=== PATIENT | female | born 1945 | race African-American/Black ===

== ENCOUNTER 2020-07-10 17:00 | Inpatient (IN) ==
[2020-07-10 18:19] LABS: Basophils % 0.2 % (0.0-0.8); Eosinophils # 0.1 10*3/uL (0.0-0.87); Hematocrit 40.1 VOL% (35.7-47.0); Hemoglobin 12.6 GM/DL (12.0-16.0); Immature Granulocytes % 0.4 %; Immature Granulocytes Absolute 0.02 #; Lymphocytes # 1.9 10*3/uL (1.4-4.0); Lymphocytes % 39.7 % (21.3-54.2); Mean Corpuscular HGB Conc 31.4 GM/DL (32-36); Mean Corpuscular Volume 85.9 FL (87-102); Mean Platelet Volume 10.4 FL (9.6-12.0); Neutrophils % 49.7 % (38.7-73.9); Platelet Count 229 T/CUMM (130-400); Red Blood Count 4.67 MC/CUMM (3.8-5.5); Red Cell Distribution Width 14.6 % (9.3-17.3); White Blood Count 4.8 T/CUMM (4-12)
[2020-07-10 18:31] LABS: Alanine Aminotransferase 17 U/L (13-56); Alkaline Phosphatase 68 U/L (45-117); Aspartate Amino Transferase 20 U/L (0-37); Bilirubin,Total < 0.39 MG/DL (0.2-1.0); Blood Urea Nitrogen 21 MG/DL (7-18); Carbon Dioxide 28 MMOL/L (21-32); Estimated Glom Filtration Rate 67 ML/MIN; Glucose 113 MG/DL (74-106); Osmolality,Calculated 276.8 MOS/KG (273-304); Potassium 4.4 MMOL/L (3.5-5.1); Sodium 137 MMOL/L (136-145); Total Protein 7.8 G/DL (6.4-8.2)
[2020-07-10 18:33] LABS: Bacteria,Urine Occasional /HPF (Few); Bilirubin,Urine Negative (Negative); Blood, Urine Negative (Negative); Glucose,Urine (UA) Negative (Negative); Ketones,Urine Negative (Negative); Mucus,Urine Occasional /LPF (Occasional); Nitrite,Urine Negative (Negative); Protein,Urine Negative; Squamous Epithelial Cell,Urine Occasional /HPF (0-10); Urine Appearance Slightly Hazy (Clear); Urine Color Yellow (Yellow); Urine Specific Gravity 1.021 (1.001-1.035); Urine Urobilinogen < 2.0 EU/DL (0.2-1.0)
[2020-07-10] MEDS ORDERED: DEXTROSE 50% 25 GM/50 ML VIAL IV PRN (20:30)
[2020-07-10] MEDS ORDERED: GLUCAGON 1 MG VIAL IM PRN (20:30)
[2020-07-10] MEDS ORDERED: ACETAMINOPHEN 325 MG TABLET PO PRN (21:30)
[2020-07-10 22:23] LABS: Barbiturates Screen,Urine Negative (Negative); Benzodiazepines Screen,Urine Negative (Negative); Cannabinoid Screen,Urine Positive (Negative); Opiate Screen,Urine Negative (Negative); Phencyclidine Screen,Urine Negative (Negative)
[2020-07-10] MEDS ORDERED: ALBUTEROL 1.25 MG/3 ML NEB RESP TX PRN (22:45)
[2020-07-11] MEDS: SODIUM CHLORIDE 0.9% 1,000 ML IV SCH ×2 (02:03→03:35)
[2020-07-11 02:22] LABS: Troponin I < 0.015 NG/ML (0.00-0.045)
[2020-07-11] MEDS: ENOXAPARIN 40 MG/0.4 ML SYRINGE SUBCUT SCH ×2 (03:35→21:02)
[2020-07-11 06:22] LABS: Basophils % 0.2 % (0.0-0.8); Eosinophils # 0.1 10*3/uL (0.0-0.87); Eosinophils % 1.4 % (0.00-10.9); Hematocrit 36.9 VOL% (35.7-47.0); Hemoglobin 11.7 GM/DL (12.0-16.0); Immature Granulocytes % 0.2 %; Immature Granulocytes Absolute 0.01 #; Lymphocytes % 46.4 % (21.3-54.2); Mean Corpuscular HGB Conc 31.7 GM/DL (32-36); Mean Corpuscular Volume 85.4 FL (87-102); Mean Platelet Volume 10.7 FL (9.6-12.0); Monocytes % 9.8 % (1.7-12.7); Platelet Count 217 T/CUMM (130-400); Red Blood Count 4.32 MC/CUMM (3.8-5.5); Red Cell Distribution Width 14.5 % (9.3-17.3); White Blood Count 4.3 T/CUMM (4-12)
[2020-07-11 06:45] LABS: Atypical Lymphocytes Few; Eosinophils 1 % (0-10); Hypochromasia 1+; Lymphocytes 38 % (20-55); Segmented Neutrophils 52 % (50-85); Total Cells Counted 100
[2020-07-11 06:46] LABS: Microcytosis 1+; Ovalocytes Slight; Target Cells Slight
[2020-07-11 06:51] LABS: Calcium 8.8 MG/DL (8.5-10.1); Osmolality,Calculated 276.5 MOS/KG (273-304); Potassium 3.8 MMOL/L (3.5-5.1)
[2020-07-11 06:55] LABS: Troponin I < 0.015 NG/ML (0.00-0.045)
[2020-07-11] MEDS: ASPIRIN EC 81 MG TABLET PO SCH (08:45)
[2020-07-11] MEDS: amLODIPine 10 MG TABLET PO SCH (08:45)
[2020-07-11] MEDS ORDERED: LORazepam 2 MG/1 ML VIAL IV ONE ×2 (11:53)
[2020-07-11] MEDS ORDERED: SKIN HEALING OINT (AQUAPHOR) 50 GM TUBE TOP PRN (13:19)
[2020-07-11] MEDS ORDERED: FLUTICASONE 50 MCG NASAL SPRAY 16 GM BOTTLE BOTH NARES PRN (13:25)
[2020-07-11] MEDS ORDERED: NITROGLYCERIN SL 0.4 MG TABLET SL PRN (13:25)
[2020-07-11] MEDS ORDERED: cloNIDine 0.1 MG TABLET PO PRN (13:25)
[2020-07-11] MEDS: OLMESARTAN 20 MG TABLET PO SCH (14:17)
[2020-07-11] MEDS: DICLOFENAC 1% GEL 100 GM TUBE TOP SCH ×2 (18:55→21:02)
[2020-07-11] MEDS: MONTELUKAST 10 MG TABLET PO SCH (21:02)
[2020-07-11] MEDS: tiZANidine 4 MG TABLET PO SCH (21:02)
[2020-07-11] MEDS: PANTOPRAZOLE 40 MG TABLET PO SCH (21:02)
[2020-07-12 05:58] LABS: Basophils % 0.6 % (0.0-0.8); Eosinophils # 0.1 10*3/uL (0.0-0.87); Eosinophils % 2.3 % (0.00-10.9); Hemoglobin 12.6 GM/DL (12.0-16.0); Immature Granulocytes % 0.3 %; Immature Granulocytes Absolute 0.01 #; Lymphocytes % 55.1 % (21.3-54.2); Mean Corpuscular HGB Conc 32.3 GM/DL (32-36); Mean Corpuscular Volume 84.8 FL (87-102); Mean Platelet Volume 10.9 FL (9.6-12.0); Monocytes % 9.3 % (1.7-12.7); Neutrophils % 32.4 % (38.7-73.9); Platelet Count 198 T/CUMM (130-400); Red Cell Distribution Width 14.6 % (9.3-17.3); White Blood Count 3.5 T/CUMM (4-12)
[2020-07-12 06:31] LABS: Calcium 8.2 MG/DL (8.5-10.1); Osmolality,Calculated 276.5 MOS/KG (273-304); Potassium 3.9 MMOL/L (3.5-5.1); Thyroid Stimulating Hormone 4.05 uIU/ml (0.358-3.74)
[2020-07-12 06:39] LABS: Eosinophils 3 % (0-10); Hypochromasia 1+; Lymphocytes 47 % (20-55); Myelocytes 1 %; Segmented Neutrophils 35 % (50-85); Total Cells Counted 100
[2020-07-12 06:40] LABS: Microcytosis 1+; Ovalocytes Slight; Platelet Estimate Adequate
[2020-07-12] MEDS: predniSONE 5 MG TABLET PO SCH (08:54)
[2020-07-12] MEDS: OLMESARTAN 20 MG TABLET PO SCH (08:55)
[2020-07-12] MEDS: NEBIVOLOL 10 MG TABLET PO SCH (08:55)
[2020-07-12] MEDS: ASPIRIN EC 81 MG TABLET PO SCH (08:55)
[2020-07-12] MEDS: CHOLECALCIFEROL 1,000 UNIT TABLET PO SCH (08:55)
[2020-07-12] MEDS: amLODIPine 10 MG TABLET PO SCH (08:55)
[2020-07-12] MEDS: MECLIZINE 25 MG TABLET PO SCH (08:56)
[2020-07-12] MEDS: DICLOFENAC 1% GEL 100 GM TUBE TOP SCH ×4 (08:56→22:10)
[2020-07-12] MEDS: PANTOPRAZOLE 40 MG TABLET PO SCH ×2 (08:56→21:36)
[2020-07-12] MEDS ORDERED: ACTUATION BL INH SCH (09:00)
[2020-07-12] MEDS ORDERED: UMECLIDINIUM VILANTEROL INH SCH (09:00)
[2020-07-12] MEDS ORDERED: LEVOTHYROXINE 50 MCG TABLET PO SCH (09:00)
[2020-07-12] MEDS ORDERED: PANTOPRAZOLE 40 MG TABLET PO SCH (14:30)
[2020-07-12] MEDS: MONTELUKAST 10 MG TABLET PO SCH (21:36)
[2020-07-12] MEDS: tiZANidine 4 MG TABLET PO SCH (21:37)
[2020-07-12] MEDS: ENOXAPARIN 40 MG/0.4 ML SYRINGE SUBCUT SCH (21:37)
[2020-07-13 05:25] LABS: Basophils % 0.4 % (0.0-0.8); Eosinophils # 0.1 10*3/uL (0.0-0.87); Eosinophils % 1.6 % (0.00-10.9); Hematocrit 40.4 VOL% (35.7-47.0); Hemoglobin 12.7 GM/DL (12.0-16.0); Immature Granulocytes % 0.2 %; Immature Granulocytes Absolute 0.01 #; Lymphocytes # 2.9 10*3/uL (1.4-4.0); Lymphocytes % 60.4 % (21.3-54.2); Mean Corpuscular HGB Conc 31.4 GM/DL (32-36); Mean Corpuscular Volume 85.8 FL (87-102); Mean Platelet Volume 10.9 FL (9.6-12.0); Monocytes % 8.4 % (1.7-12.7); Platelet Count 226 T/CUMM (130-400); Red Blood Count 4.71 MC/CUMM (3.8-5.5); Red Cell Distribution Width 14.5 % (9.3-17.3); White Blood Count 4.9 T/CUMM (4-12)
[2020-07-13 05:50] LABS: Calcium 8.8 MG/DL (8.5-10.1); Osmolality,Calculated 278.4 MOS/KG (273-304); Potassium 3.9 MMOL/L (3.5-5.1)
[2020-07-13 05:52] LABS: Eosinophils 1 % (0-10); Hypochromasia Slight; Lymphocytes 70 % (20-55); Platelet Estimate Adequate; Segmented Neutrophils 23 % (50-85); Total Cells Counted 100
[2020-07-13 05:53] LABS: Atypical Lymphocytes Few; Microcytosis 1+
[2020-07-13] MEDS ORDERED: LEVOTHYROXINE 75 MCG TABLET PO SCH (06:30)
[2020-07-13] MEDS ORDERED: CALCIUM CARBONATE CHEW 500 MG TABLET PO PRN (08:17)
[2020-07-13] MEDS ORDERED: ALUM/MAG/SIMETH/LIDO VISC 1:1 30 ML BOTTLE PO ONE (08:17)
[2020-07-13] MEDS: OLMESARTAN 20 MG TABLET PO SCH (09:10)
[2020-07-13] MEDS: NEBIVOLOL 10 MG TABLET PO SCH (09:10)
[2020-07-13] MEDS: PANTOPRAZOLE 40 MG TABLET PO SCH (09:11)
[2020-07-13] MEDS: CHOLECALCIFEROL 1,000 UNIT TABLET PO SCH (09:11)
[2020-07-13] MEDS: MECLIZINE 25 MG TABLET PO SCH (09:11)
[2020-07-13] MEDS: predniSONE 5 MG TABLET PO SCH (09:12)
[2020-07-13] MEDS: amLODIPine 10 MG TABLET PO SCH (09:12)
[2020-07-13] MEDS: ASPIRIN EC 81 MG TABLET PO SCH (09:12)
[2020-07-13] MEDS: DICLOFENAC 1% GEL 100 GM TUBE TOP SCH (09:13)
[2020-07-13 10:47] LABS: Risk Ratio 2.53
[2020-07-13 12:23] VITALS: BP 122/67
== END 2020-07-13 13:10 | disposition home health service (06) | DRG 312 ==
LOC: N.ED 17:00 → N.EDINP 17:00 → N.4E 07-11 00:01
PROVIDERS: ADMIT Internal Medicine; ATTEND Internal Medicine

== ENCOUNTER 2021-07-23 21:33 | Observation (INO) ==
[2021-07-23] MEDS ORDERED: ONDANSETRON 4 MG/2 ML VIAL IV STA (21:43)
[2021-07-23 22:16] LABS: Basophils % 0.3 % (0.0-0.8); Eosinophils # 0.1 10*3/uL (0.0-0.87); Eosinophils % 1.1 % (0.00-10.9); Hematocrit 33.7 VOL% (35.7-47.0); Hemoglobin 10.7 GM/DL (12.0-16.0); Immature Granulocytes % 0.3 %; Immature Granulocytes Absolute 0.02 #; Lymphocytes # 2.1 10*3/uL (1.4-4.0); Lymphocytes % 32.2 % (21.3-54.2); Mean Corpuscular HGB Conc 31.8 GM/DL (32-36); Mean Corpuscular Volume 84.9 FL (87-102); Mean Platelet Volume 10.6 FL (9.6-12.0); Monocytes # 0.4 10*3/uL (0.11-0.8); Monocytes % 5.5 % (1.7-12.7); Neutrophils % 60.6 % (38.7-73.9); Platelet Count 190 T/CUMM (130-400); Red Blood Count 3.97 MC/CUMM (3.8-5.5); Red Cell Distribution Width 13.9 % (9.3-17.3); White Blood Count 6.5 T/CUMM (4-12)
[2021-07-23 22:26] LABS: PT Patient Result 10.9 SECS (10.5-12.0)
[2021-07-23 22:35] LABS: Albumin 3.2 G/DL (3.4-5.0); Bilirubin,Total 0.5 MG/DL (0.20-1.00); Calcium 9.2 MG/DL (8.5-10.1); Osmolality,Calculated 283.1 MOS/KG (273-304); Total Protein 6.5 G/DL (6.4-8.2)
[2021-07-24] MEDS ORDERED: POTASSIUM CHLORIDE 20 MEQ TABLET PO STA (00:15)
[2021-07-24 00:16] LABS: Mucus,Urine Occasional /LPF (Occasional); Squamous Epithelial Cell,Urine Occasional /HPF (0-10)
[2021-07-24 00:18] LABS: Bilirubin,Urine Negative (Negative); Blood, Urine Negative (Negative); Glucose,Urine (UA) Negative (Negative); Ketones,Urine Negative (Negative); Nitrite,Urine Negative (Negative); Protein,Urine Negative (Negative); Urine Appearance Clear (Clear); Urine Color Yellow (Yellow); Urine Specific Gravity 1.015 (1.001-1.035); Urine Urobilinogen 0.2 eU/dL (<2.0); Urine pH 7.5 (4.5-8.0)
[2021-07-24] MEDS ORDERED: guaiFENesin/DM ER 600-30 MG TABLET PO PRN (00:57)
[2021-07-24] MEDS ORDERED: GLUCAGON 1 MG VIAL IM PRN ×2 (00:57)
[2021-07-24] MEDS ORDERED: ONDANSETRON 4 MG/2 ML VIAL IV PRN (00:57)
[2021-07-24] MEDS ORDERED: DEXTROSE 50% 25 GM/50 ML VIAL IV PRN (00:57)
[2021-07-24] MEDS ORDERED: ZALEPLON 5 MG CAPSULE PO PRN (00:57)
[2021-07-24] MEDS ORDERED: NICOTINE 21 MG/24 HR PATCH TRANSDERM PRN (00:57)
[2021-07-24] MEDS ORDERED: ACETAMINOPHEN 325 MG TABLET PO PRN (00:57)
[2021-07-24] MEDS ORDERED: BISACODYL 5 MG TABLET PO PRN (00:57)
[2021-07-24] MEDS ORDERED: hydrALAZINE 20 MG/1 ML VIAL IV PRN (00:57)
[2021-07-24] MEDS ORDERED: DEXTROSE 10% 250 ML BAG IV PRN (00:57)
[2021-07-24] MEDS ORDERED: SODIUM CHLORIDE 0.9% 1,000 ML IV SCH (01:00)
[2021-07-24] MEDS ORDERED: amLODIPine 5 MG TABLET PO STA (01:08)
[2021-07-24] MEDS ORDERED: METOPROLOL TARTRATE 25 MG TABLET PO STA (01:09)
[2021-07-24 04:01] LABS: Basophils % 0.2 % (0.0-0.8); Hematocrit 33.7 VOL% (35.7-47.0); Hemoglobin 10.8 GM/DL (12.0-16.0); Immature Granulocytes % 0.2 %; Immature Granulocytes Absolute 0.01 #; Lymphocytes # 0.9 10*3/uL (1.4-4.0); Lymphocytes % 20.8 % (21.3-54.2); Mean Corpuscular Volume 84.9 FL (87-102); Monocytes # 0.3 10*3/uL (0.11-0.8); Monocytes % 6.3 % (1.7-12.7); Neutrophils % 72.5 % (38.7-73.9); Platelet Count 204 T/CUMM (130-400); Red Blood Count 3.97 MC/CUMM (3.8-5.5); Red Cell Distribution Width 13.8 % (9.3-17.3); White Blood Count 4.3 T/CUMM (4-12)
[2021-07-24 04:22] LABS: Calcium 8.7 MG/DL (8.5-10.1); Osmolality,Calculated 276.7 MOS/KG (273-304)
[2021-07-24] MEDS ORDERED: FLUTICASONE 50 MCG NASAL SPRAY 16 GM BOTTLE BOTH NARES PRN (05:55)
[2021-07-24] MEDS ORDERED: LEVOTHYROXINE 75 MCG TABLET PO SCH (06:30)
[2021-07-24] MEDS ORDERED: INSULIN LISPRO 100 UNIT/ML SUBCUT SCH (07:30)
[2021-07-24] MEDS ORDERED: PANTOPRAZOLE 40 MG TABLET PO SCH (09:00)
[2021-07-24] MEDS ORDERED: amLODIPine 10 MG TABLET PO SCH (09:00)
[2021-07-24] MEDS ORDERED: SERTRALINE 50 MG TABLET PO SCH (09:00)
[2021-07-24] MEDS ORDERED: POTASSIUM CHLORIDE 20 MEQ TABLET PO SCH (09:00)
[2021-07-24] MEDS ORDERED: ROSUVASTATIN 10 MG TABLET PO SCH (09:00)
[2021-07-24 14:29] VITALS: BP 122/62
[2021-07-24] MEDS ORDERED: GABAPENTIN 100 MG CAPSULE PO SCH (21:00)
[2021-07-24] MEDS ORDERED: METOCLOPRAMIDE 5 MG TABLET PO SCH (21:00)
[2021-07-25] MEDS ORDERED: ASPIRIN EC 81 MG TABLET PO SCH (09:00)
== END 2021-07-24 16:01 | disposition home or self-care (01) ==
LOC: EDBD → EDUNIT# → N.ED 21:33 → N.EDINP 21:33 → SUATTDRO 07-24 00:57 → N.EDINP 07-24 16:52
PROVIDERS: ADMIT Internal Medicine; ATTEND Internal Medicine